=== PATIENT | male | born 1975 | race Caucasian/White ===

== ENCOUNTER → 2020-08-09 | Outpatient (CLI) | payer OTHER ==
[2020-08-09 09:19] LABS: African American GFR (CKD) >90 (>60 ml/min/1.73 sqM); Blood Urea Nitrogen 20 mg/dL (9-20); Non-African American GFR(CKD) >90 (>60 ml/min/1.73 sqM)
--- NOTE | 2020-08-09 13:41 | CT ---
EXAMINATION TYPE: CT angio chest DATE OF EXAM: 08/09/2020 10:54 AM COMPARISON: None HISTORY: right subclavian artery stenosis with history of subclavian stent CT DLP: 2631.8 mGycm Automated exposure control for dose reduction was used. TECHNIQUE: Performed without and with IV Contrast, patient injected with 100 mL of Isovue 370. . FINDINGS: Right-sided subclavian arterial stent is in place. The stent does not opacify with contrast and is th erefore thrombosed. There is reconstitution of the subclavian artery just distal to the stent by an a djacent branch vessel. Visualized portions of the right brachial artery are well opacified. There is been partial resection of the right clavicle as well as the right first rib. The thoracic aorta is of normal caliber. Normal lumbar vessels noted. Visualized portions of the right lung are well opacifie d. Small hiatal hernia noted. The heart is of normal size. IMPRESSION: THROMBOSED RIGHT SUBCLAVIAN ARTERY STENT. RECONSTITUTION JUST DISTAL TO THE THROMBOSED STENT NOTED ABOVE.
== END | disposition home or self-care (01) ==
LOC: RADCTMAIN 08:18
PROVIDERS: ATTEND Thoracic Surgery (Cardiothoracic Vascular Surgery)
DX: I77.1 Stricture of artery (principal); Z95.828 Presence of other vascular implants and grafts
CPT/HCPCS: 82565; 84520; 71275; 36415; Q9967

== ENCOUNTER 2023-01-01 05:59 | Day surgery (SDC) | payer OTHER ==
[2022-12-30 14:58] VITALS: BMI 56.0
[2023-01-01] MEDS ORDERED: LACTATED RINGERS 1,000 ML IV SCH (06:14)
[2023-01-01 06:25] VITALS: TEMP 96.9
[2023-01-01 06:38] LABS: Glucose,Whole Blood 237 mg/dL (70-110)
[2023-01-01] MEDS ORDERED: KETAMINE 10 MG/ML 20 ML VIAL ONE (07:07)
[2023-01-01] MEDS ORDERED: PROPOFOL 10 MG/ML 20 ML VIAL IV ONE (07:07)
[2023-01-01] MEDS ORDERED: fentaNYL (PF) 50 MCG/ML 2 ML AMP ONE (07:07)
[2023-01-01] MEDS ORDERED: MIDAZOLAM 2 MG/2 ML VIAL ONE (07:07)
--- NOTE | 2023-01-01 07:26 | P.PCN ---
Date of Procedure: 01/01/23 Procedure(s) Performed: BRIEF HISTORY: Patient is a 47-year-old pleasant white male scheduled for an elective colonoscopy as a part of evaluation of intermittent rectal bleeding for the last 6 months duration. He has these episodes once or twice a week. PROCEDURE PERFORMED: Colonoscopy with snare polypectomy. PREOPERATIVE DIAGNOSIS: Intermittent rectal bleeding. IV sedation per Anesthesia. PROCEDURE: After informed consent was obtained, the patient, was brought into the endoscopy unit. IV sedation was administered by Anesthesia under continuous monitoring. Digital rectal examination was normal. Initially the Olympus CF-160 flexible video colonoscope was then inserted in the rectum, gradually advanced into the cecum without any difficulty. Careful examination was performed as the scope was gradually being withdrawn. Ileocecal valve and the appendiceal orifice were visualized and appeared normal. Prep was excellent. Mucosa of the cecum, appeared normal. Ascending colon there was a 7 mm sessile polyp removed by snare polypectomy. Rest of the ascending colon, transverse colon, descending colon, sigmoid colon, and rectum appeared normal. Retroflexion was performed in the rectum and small internal hemorrhoids were seen. The patient tolerated the procedure well. IMPRESSION: 7 mm ascending colon polyp status post polypectomy Small internal hemorrhoids RECOMMENDATIONS: Findings of this examination were discussed with the patient as well as his family.. He was advised to follow with the biopsy result. The biopsies with adenoma he can have a repeat colonoscopy in 5 years. In the meantime he was advised to be a high-fiber diet and fiber supplements a regular basis and avoid straining and constipation.
[2023-01-01 07:36] LABS: Glucose,Whole Blood 232 mg/dL (70-110)
[2023-01-01 07:55] VITALS: BP 127/81; PULSE 84; RESP 17
[2023-01-01] MEDS ORDERED: INSULIN ASPART (NovoLOG) 100 UNIT/ML VIAL SQ ONE (07:59)
== END 2023-01-01 08:15 | disposition home or self-care (01) ==
LOC: ORWHC2ENDO 05:59
PROVIDERS: ATTEND Internal Medicine Gastroenterology
DX: D12.2 Benign neoplasm of ascending colon (principal); K62.5 Hemorrhage of anus and rectum; K64.8 Other hemorrhoids; I10 Essential (primary) hypertension; E11.9 Type 2 diabetes mellitus without complications; Z79.899 Other long term (current) drug therapy; Z79.82 Long term (current) use of aspirin; Z95.5 Presence of coronary angioplasty implant and graft; E66.01 Morbid (severe) obesity due to excess calories; Z68.1 Body mass index [BMI] 19.9 or less, adult; Z98.890 Other specified postprocedural states
CPT/HCPCS: 88305; 45385; J2250; J3010; J2704

== ENCOUNTER → 2023-01-21 | Outpatient (CLI) | payer OTHER | END | disposition home or self-care (01) | LOC: LABWHC1 10:05 | PROVIDERS: ATTEND Internal Medicine Endocrinology, Diabetes & Metabolism | DX: Z53.9 Procedure and treatment not carried out, unspecified reason (principal) ==

== ENCOUNTER → 2023-05-24 | Outpatient (CLI) | payer OTHER ==
[2023-05-24 16:56] LABS: ALT 16 U/L (10-49); AST 24 U/L (14-35); Albumin 4.3 d/dL (3.8-4.9); Albumin/Globulin Ratio 1.72 Ratio (1.60-3.17); Alkaline Phosphatase 83 U/L (41-126); BUN/Creat Ratio 12.64 Ratio (12.00-20.00); Blood Urea Nitrogen 13.9 mg/dL (9.0-27.0); Calcium 9.7 mg/dL (8.7-10.3); Carbon Dioxide 26.7 mmol/L (21.6-31.8); Chloride 102 mmol/L (96-109); Chol/HDL Ratio 2.69 Ratio; Globulin 2.5 d/dL (1.6-3.3); Glucose 144 mg/dL (70-110); LDL Cholesterol,Calculated 42.6 mg/dL (0.0-131.0); Potassium 4.8 mmol/L (3.5-5.5); Sodium 141 mmol/L (135-145); Total Bilirubin 0.6 mg/dL (0.3-1.2); Total Protein 6.8 d/dL (6.2-8.2)
[2023-05-24 18:02] LABS: HCT 41.9 % (39.6-50.0); HGB 12.8 d/dL (13.0-17.0); MCH 28.6 pg (27.0-32.0); MCHC 30.5 d/dL (32.0-37.0); MCV 93.5 FL (80.0-97.0); Mean Platelet Volume 9.6 FL (9.5-12.2); NRBC Per 100 WBC 0 X 10*3/uL (0.00-0.01); Platelet Count 295 X 10*3/uL (140-440); RBC 4.48 X 10*6/uL (4.40-5.60); RDW 14.6 % (11.5-14.5); WBC 7.14 X 10*3/uL (4.50-10.00)
[2023-05-24 20:03] LABS: Bacteria,Urine None Seen (None Seen)
[2023-05-24 20:48] LABS: Appearance,Urine Turbid (Clear); Bilirubin,Urine Negative (Negative); Blood,Urine Negative (Negative); Color,Urine Yellow (Yellow); Ketones,Urine Trace (Negative); Nitrite,Urine Negative (Negative); Specific Gravity,Urine 1.027 (1.001-1.030); Urobilinogen,Urine 0.2
== END | disposition home or self-care (01) ==
LOC: LABWHC1 11:20
PROVIDERS: ATTEND Internal Medicine Endocrinology, Diabetes & Metabolism
DX: I10 Essential (primary) hypertension (principal); N40.0 Benign prostatic hyperplasia without lower urinary tract symptoms; E10.65 Type 1 diabetes mellitus with hyperglycemia; E66.01 Morbid (severe) obesity due to excess calories
CPT/HCPCS: 36415; 80053; 80061; 81001; 82043; 82306; 82570; 83036; 84153; 84443; 85027

== ENCOUNTER → 2023-12-20 | Outpatient (CLI) | payer OTHER ==
[2023-12-20 16:29] LABS: ALT 22 U/L (10-49); AST 46 U/L (14-35); Albumin 4.2 g/dL (3.8-4.9); Albumin/Globulin Ratio 1.62 Ratio (1.60-3.17); Alkaline Phosphatase 77 U/L (41-126); Blood Urea Nitrogen 13.2 mg/dL (9.0-27.0); Calcium 9.5 mg/dL (8.7-10.3); Carbon Dioxide 25.5 mmol/L (21.6-31.8); Chloride 104 mmol/L (96-109); Globulin 2.6 g/dL (1.6-3.3); Glucose 138 mg/dL (70-110); LDL Cholesterol,Calculated 54.4 mg/dL (0.0-131.0); Potassium 4.5 mmol/L (3.5-5.5); Prostate Specific Antigen 0.68 ng/mL (0.000-2.500); Sodium 142 mmol/L (135-145); T4, Free (Free Thyroxine) 1.14 ng/dL (0.80-1.80); Total Bilirubin 0.6 mg/dL (0.3-1.2); Total Protein 6.8 g/dL (6.2-8.2)
[2023-12-20 16:58] LABS: HCT 42.1 % (39.6-50.0); MCH 28.6 pg (27.0-32.0); MCHC 30.9 g/dL (32.0-37.0); MCV 92.5 FL (80.0-97.0); Mean Platelet Volume 9.7 FL (9.5-12.2); NRBC Per 100 WBC 0 X 10*3/uL (0.00-0.01); Platelet Count 269 X 10*3/uL (140-440); RBC 4.55 X 10*6/uL (4.40-5.60); RDW 15.1 % (11.5-14.5); WBC 6.77 X 10*3/uL (4.50-10.00)
[2023-12-20 17:07] LABS: Appearance,Urine Turbid (Clear); Bilirubin,Urine Negative (Negative); Blood,Urine Negative (Negative); Color,Urine Yellow (Yellow); Ketones,Urine Negative (Negative); Nitrite,Urine Negative (Negative); Specific Gravity,Urine 1.023 (1.001-1.030); Urobilinogen,Urine 0.2 E.U./DL
[2023-12-20 17:25] LABS: Amorphous Sediment,Urine Present (None Seen); Bacteria,Urine None Seen (None Seen)
== END | disposition home or self-care (01) ==
LOC: LABWHC1 11:15
PROVIDERS: ATTEND Internal Medicine Endocrinology, Diabetes & Metabolism
DX: Z00.00 Encounter for general adult medical examination without abnormal findings (principal); E10.65 Type 1 diabetes mellitus with hyperglycemia
CPT/HCPCS: 36415; 80053; 80061; 81001; 82043; 82570; 83036; 84153; 84439; 84443; 85027

== ENCOUNTER → 2024-02-17 | Outpatient (CLI) | payer OTHER ==
[2024-02-17 13:53] VITALS: BP 129/84; PULSE 92; RESP 18; TEMP 98.2
--- NOTE | 2024-02-17 14:20 | P.SLEEP ---
History of Present Illness DATE: 02/17/2024 CONSULTATION/NEW PATIENT EVALUATION HISTORY OF PRESENT ILLNESS/SLEEP-WAKE EVALUATION: 48-year-old gentleman had be en evaluated in the sleep center for obstructive sleep apnea hypopnea syndrome. Patient has history of obstructive sleep apnea diagnosed about 20 years ago in another institution, he was on treatment with CPAP for about 4 years, then he lost about 100 pounds of weight and his condition improved and he stopped using CPAP. For the next years patient again increased his weight and develop symptoms of sleep apnea. SLEEP SCHEDULE: Usually sleep schedule from 9 PM to 4:15 AM on weekdays and from 10 PM to 8 AM on weekend. FALLING ASLEEP: No problems with falling asleep. DURING SLEEP: Patient has loud snoring and witnessed episodes of stop breathing during the sleep. Patient wakes up from sleep 3 times with nocturia, vivid dreams, sleep talking, restless leg symptoms and twitching of the legs and body. No history of hypnogogical hallucinations, sleep paralysis, or cataplexy. DURING THE DAY/WAKE STATE: During the day patient feels sleepiness. Windsor sleepiness scale is increased to 11. Usually patient does not take naps. PAST MEDICAL HISTORY: Diabetes mellitus type 1, acid reflux, thoracic outlet syndrome. PAST SURGICAL HISTORY: Surgery for thoracic outlet syndrome. MEDICATIONS: Please see below. SOCIAL HISTORY: Please see below. FAMILY HISTORY: Please see below. REVIEW OF SYSTEMS: Snoring, multiple awakenings from sleep. No fevers. No double vision. No recent chest pain. No shortness of breath. No abdominal pain. No bleeding episodes. No blood in urine. No seizure episodes. PHYSICAL EXAMINATION: GENERAL: A pleasant patient without any distress. VITAL SIGNS: Please see below, weight 490.4 pounds, BMI 62.0. HEENT: PERRLA, EOMI. Evaluation of oropharynx showed tongue protrudes midline, low position of soft palate Mallampati 4. NECK: Supple. No JVD. Thyroid is not palpable. 21 inches in circumference. LUNGS: Clear to percussion and to auscultation. Good air exchange. No wheezing or rhonchi. HEART: S1, S2 regular. No murmurs, gallops or rubs. ABDOMEN: Soft and nontender. Bowel sounds are present. No organomegaly appreciated. EXTREMITIES: No clubbing or cyanosis. CARPENTER ROUGH: Awake, alert, and oriented x3. Cranial nerves 2 to 7 intact. There is no fa sciculation or atrophy noted. No focal deficits observed. ASSESSMENT: 1. Loud snoring, witnessed episodes of stop breathing during the sleep, multiple awakenings from sleep, extremely low position of soft palate Mallampati 4, wide neck 21 inches in circumference, sleepiness with Windsor Sleepiness Scale 11, history of obstructive sleep apnea in the past. Obstructive sleep apnea hypopnea syndrome. 2. Significant amount of movements during the sleep, possibly periodic limb movements. 3. Morbid obesity, BMI 62.0. 4. Diabetes mellitus type 1. 5 history of thoracic outlet syndrome, status post surgical treatment. 6 . Acid reflux. 7. History of sleep talking. PLAN: 1. Polysomnography for evaluation of patient's breathing during sleep. 2. CPAP/BiPAP titration . 3. Preferable position during sleep on the side. 4. No driving if patient feels any sleepiness. Patient is aware of civil and criminal liability for unsafe driving. 5. Sleep hygiene with regular sleep time for at least 7.5-8 hours. 6. Aggressive losing weight program. Thank you very much for referring this patient for consultation. Sincerely, Jaycob Bond MD, PhD, FAASM. Diplomat of [employer], Sleep Medicine Board by [employer] Milled Lumber Grader of [facility] [place] Past Medical History Past Medical History: Diabetes Mellitus, Deep Vein Thrombosis (DVT), GERD/Reflux, Sleep Apnea/CPAP/BIPAP Additional Past Medical History / Comment(s): small amount of bleeding with stools,takes prophylaxis for hx. 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 DVT in right arm & leg, snoring History of Any Multi-Drug Resistant Organisms: MRSA Date of last positivie culture/infection: 2004 MDRO Source:: right shoulder Past Surgical History: Hernia Repair, Orthopedic Surgery Additional Past Surgical History / Comment(s): 1st rib removed, right collar bone removed, stent in artery in right arm (told that it is now closed and veins are supporting bloodflow), r knee meniscus Past Anesthesia/Blood Transfusion Reactions: No Reported Reaction, Family History of Problems w/ Anesthesia Additional Past Anesthesia/Blood Transfusion Reaction / Comment(s): no hx blood transfusion. mom has PONV Past Psychological History: No Psychological Hx Reported Smoking Status: Never smoker Past Alcohol Use History: None Reported Past Drug Use History: None Reported Additional Drug Use History / Comment(s): havent drank since 2003 - Past Family History Mother Family Medical History: No Reported History Father Family Medical History: Diabetes Mellitus Additional Family Medical History / Comment(s): snores, stomach ulcers, enlarged prostrate Medications and Allergies Home Medications Medication Instructions Recorded Confirmed Type Aspirin 325 mg PO DAILY 08/29/14 01/01/23 History Clopidogrel [Plavix] 75 mg PO DAILY 08/29/14 01/01/23 History Doxycycline Hyclate [Vibramycin] 100 mg PO BID 08/29/14 01/01/23 History INSULIN ASPART (NovoLOG) [NovoLOG] 0 unit SQ TID-W/MEALS PRN 08/29/14 01/01/23 History Nizatidine [Axid] 150 mg PO DAILY 08/29/14 01/01/23 History Ramipril 20 mg PO HS 08/29/14 02/17/24 History Glucosamine-Chondr 500-400Mg 1 each PO DAILY 12/30/22 01/01/23 History Insulin Detemir (Levemir) [Levemir] 58 unit SQ QAM 12/30/22 01/01/23 History Insulin Detemir (Levemir) [Levemir] 67 unit SQ HS 12/30/22 01/01/23 History Multivit-Mins/Iron/Folic/Lycop 1 each PO DAILY 12/30/22 02/17/24 History [Centrum Men's Tablet] Rosuvastatin Calcium 5 mg PO DAILY 12/30/22 02/17/24 History metFORMIN HCL [Glucophage] 1,000 mg PO BID 12/30/22 02/17/24 History Aspirin 325 mg PO DAILY 02/17/24 02/17/24 History Clopidogrel [Plavix] 75 mg PO DAILY 02/17/24 02/17/24 History Doxycycline [Vibramycin] 100 mg PO BID 02/17/24 02/17/24 History Glucosamine HCl/Chondroitin Escobedo 1,500 mg PO BID 02/17/24 02/17/24 History [Glucosamine-Chondroitin Cap] Insulin Aspart [NovoLOG] 2 units INJ DAILY 02/17/24 02/17/24 History Insulin Detemir (Levemir) [Levemir] 60 unit SQ BID 02/17/24 02/17/24 History Pantoprazole [Protonix] 40 mg PO DAILY 02/17/24 02/17/24 History Allergies Allergy/AdvReac Type Severity Reaction Status Date / Time No Known Allergies Allergy Verified 01/01/23 06:19 Physical Exam Vitals: Vital Signs Temp Pulse Resp BP Pulse Ox 02/17/24 13:53 98.2 F 92 18 129/84 94 L Intake and Output 02/16/24 02/17/24 02/17/24 22:59 06:59 14:59 Other: Weight 222.374 kg Sleep Note - Sleep Data ESS Total: 11 - Sleep Note Sleep Note: Temperature: 98.2 F Pulse Rate: 92 Respiratory Rate: 18 Blood Pressure: 129/84 SpO2: 94 Height: 6 ft 2.5 in Weight: 222.374 kg BMI: Neck Circumference: 21
== END ==
LOC: 3 N SLEEP 13:13
PROVIDERS: ATTEND Internal Medicine
DX: G47.33 Obstructive sleep apnea (adult) (pediatric) (principal); E66.01 Morbid (severe) obesity due to excess calories; E10.9 Type 1 diabetes mellitus without complications; K21.9 Gastro-esophageal reflux disease without esophagitis; Z68.44 Body mass index [BMI] 60.0-69.9, adult; Z86.39 Personal history of other endocrine, nutritional and metabolic disease; Z86.69 Personal history of other diseases of the nervous system and sense organs; Z79.84 Long term (current) use of oral hypoglycemic drugs; Z79.02 Long term (current) use of antithrombotics/antiplatelets
CPT/HCPCS: 99211

== ENCOUNTER 2024-05-29 19:30 | Outpatient (CLI) | payer OTHER ==
--- NOTE | 2024-05-31 12:32 | P.PCN ---
Description of Procedure: : POLYSOMNOGRAPHY REPORT PROCEDURE(S)/DATE(S): Polysomnography 05/29/2024 CLINICAL: Patient has been seen in the sleep center for evaluation of obstructive sleep apnea-hypopnea syndrome. Please see my consultation. Sleep study has been done for evaluation of patient breathing during the sleep. PROCEDURE: The standard montage for clinical polysomnography included the electroencephalogram, the electrooculogram, the mentalis surface electromyography and Lead II cardiography. The respiratory battery consisted of measurements of nasal/buccal air flow, pressure transducer measurements from nose, thoracic and/or abdominal effort and intercostal surface electromyography. Video monitoring has been done to check for any parasomnia events. Nocturnal oxyhemoglobin saturations were obtained by finger oximetry. Step-carrasquillo titration with positive airway pressure was utilized to control the respiratory events, if necessary. RESULTS: During the diagnostic sleep study sleep efficiency was close to normal 88.3%. Latency to sleep onset was short to 4.5 min. Sleep architecture showed stage NI was short 1.4%, Delta sleep was normal 16.5%, REM sleep was significantly increased to 40.2%. Respiratory channel showed 243 obstructive apneas, 5 mixed apneas, 38 central apneas, 307 hypopneas with lowest oxygen level 34%. Total apnea hypopnea index was 19.4. Heart rate was in the range between 73 and 92, average 81. EMG showed 0 periodic limb movements per hour. IMPRESSIONS: 1. Extremely severe obstructive sleep apnea hypopnea syndrome with presence of some central apneas with extremely severe oxygen desaturation. 2. No significant periodic limb movements have been documented. Please see other impressions from consultation PLAN: 1. The patient will have PAP titration for correction of respiratory abnormalities during the sleep. 2. Aggressive losing weight program. 3. Sleep hygiene with regular time in bed for at least 7-1/2 hours. 4. No driving if feeling sleepiness. Thank you very much for allowing me to participate in the management of your patient. Sincerely, Jaycob Bond MD, PhD, FAASM. Diplomat of [place] Board of [employer] Medicine, Sleep Medicine Board by [place] [employer] Internal Medicine Schedule Clerk of [facility] [place] cc: Elder Martinez DO
--- NOTE | 2024-06-07 14:17 | P.PCN ---
Description of Procedure: [address], [place] [address] Procedure Note Patient Name: Jeison Davidson Date of : 79 Patient Status: Clinical Attending Provider: Jaycob Bond Date: 05/31/24 12:21 Initialization Date: 05/31/24 12:21 Description of Procedure: : POLYSOMNOGRAPHY REPORT PROCEDURE(S)/DATE(S): Polysomnography 05/29/2024 CLINICAL: Patient has been seen in the sleep center for evaluation of obstructive sleep apnea-hypopnea syndrome. Please see my consultation. Sleep study has been done for evaluation of patient breathing during the sleep. PROCEDURE: The standard montage for clinical polysomnography included the electroencephalogram, the electrooculogram, the mentalis surface electromyography and Lead II cardiography. The respiratory battery consisted of measurements of nasal/buccal air flow, pressure transducer measurements from nose, thoracic and/or abdominal effort and intercostal surface electromyography. Video monitoring has been done to check for any parasomnia events. Nocturnal oxyhemoglobin saturations were obtained by finger oximetry. Step-carrasquillo titration with positive airway pressure was utilized to control the respiratory events, if necessary. RESULTS: During the diagnostic sleep study sleep efficiency was close to normal 88.3%. Latency to sleep onset was short to 4.5 min. Sleep architecture showed stage NI was short 1.4%, Delta sleep was normal 16.5%, REM sleep was significantly increased to 40.2%. Respiratory channel showed 243 obstructive apneas, 5 mixed apneas, 38 central apneas, 307 hypopneas with lowest oxygen level 34%. Total apnea hypopnea index was 90.4. Heart rate was in the range between 73 and 92, average 81. EMG showed 0 periodic limb movements per hour. IMPRESSIONS: 1. Extremely severe obstructive sleep apnea hypopnea syndrome with presence of some central apneas with extremely severe oxygen desaturation. 2. No significant periodic limb movements have been documented. Please see other impressions from consultation PLAN: 1. The patient will have PAP titration for correction of respiratory abnormalities during the sleep. 2. Aggressive losing weight program. 3. Sleep hygiene with regular time in bed for at least 7-1/2 hours. 4. No driving if feeling sleepiness. Thank you very much for allowing me to participate in the management of your patient. Sincerely, Jaycob Bond MD, PhD, FAASM. Diplomat of [employer] Board of Sleep Medicine, Sleep Medicine Board by [employer] Board of Internal Medicine Student Affairs Vice President of [facility] [place] cc: Elder Martinez DO
== END 2024-05-30 05:25 | disposition home or self-care (01) ==
LOC: 3 N SLEEP 19:30
PROVIDERS: ATTEND Internal Medicine
CPT/HCPCS: 95810

== ENCOUNTER 2024-07-02 19:36 | Outpatient (CLI) | payer OTHER ==
--- NOTE | 2024-07-05 11:29 | P.PCN ---
Description of Procedure: CLINICAL: Titration with positive air pressure has been done for correction of respiratory abnormalities during sleep. DESCRIPTION OF PROCEDURE: The standard montage for clinical polysomnography included the electroencephalogram, the electrocardiogram, the mentalis surface electromyography and Lead II cardiography. The respiratory battery consisted of measurements of nasal /buccal air flow, pressure transducer measurements from the nose, thoracic and /or abdominal effort and intercostal surface electromyography. Video monitoring has been done to check for any parasomnia events. Nocturnal oxyhemoglobin saturations were obtained by finger oximetry. Step-carrasquillo titration with positive airway pressure was utilized to control respiratory events. Raw data of sleep recording has been reviewed and is adequate. RESULTS: Sleep efficiency was normal 91.5%. Latency to sleep onset was normal at 13.5 minutes.]. Sleep architecture showed stage N1 was short 1.2%, Delta sleep was normal 7.8%, REM sleep was increased to 33.5%. Heart rate was minimum 74 BPM, maximum 90 BPM, average 81 BPM. EMG showed 13.4 periodic limb movements per hour with 0.3 micriarousals per hour. PAP titration have been done with CPAP up to the pressure 11 cm H2O. Patient continue abnormalities of respiration with CPAP, switched to BPAP. BPAP titrated up to 24/19 cm H2O. The best results were at the pressure 24/19 cm H2O with 2 L/min oxygen supplement. Apnea hypopnea index reduced to 5.8, patient was on that pressure in non-REM sleep and REM sleep. IMPRESSION: 1. Obstructive sleep apnea hypopnea syndrome mostly on controle with high level of BPAP treatment. 2. Mild periodic limb movements have been documented. 3. Morbid obesity, weight 490 pounds, BMI 62.9. Please see other impressions from consultation. PLAN: 1. The patient will have treatment with positive air pressure equipment with the level of pressure AutoBAPAP with minimal expiratory pressure 10 with maximal inspiratory pressure 24 cm H2O with 2 L/min oxygen supplement and should use it every night for the whole night. 2. Watching and losing weight. 3. Sleep hygiene with regular time in bed for at least 8 hours. 4. No driving if feeling any sleepiness. 5. I will see the patient for follow up visit to explain the results of the test, recommendations, check compliance with treatment and make any necessary adjustment related to mask fitting, pressure and humidification. 6. Please check iron profile including ferritin level. Low level of iron may increase risk for periodic limb movements Thank you very much for allowing me to participate in the management of your patient. Sincerely, Jaycob Bond MD, PhD, FAASM Diplomat of [employer] Board of [employer] Specialties Sleep Medicine Board of [place] Board of Internal Medicine Photographic Processor of [facility] [place] cc: Elder Martinez DO
== END 2024-07-03 04:43 | disposition home or self-care (01) ==
LOC: 3 N SLEEP 19:36
PROVIDERS: ATTEND Internal Medicine
DX: G47.33 Obstructive sleep apnea (adult) (pediatric) (principal); G47.61 Periodic limb movement disorder; G47.10 Hypersomnia, unspecified; E66.01 Morbid (severe) obesity due to excess calories; Z68.44 Body mass index [BMI] 60.0-69.9, adult
CPT/HCPCS: 95811

== ENCOUNTER → 2024-09-26 | Outpatient (CLI) | payer OTHER ==
[2024-09-26 20:35] LABS: ALT 35 U/L (10-49); AST 168 U/L (14-35); Albumin 4.4 g/dL (3.8-4.9); Albumin/Globulin Ratio 1.33 Ratio (1.60-3.17); Alkaline Phosphatase 85 U/L (41-126); BUN/Creat Ratio 9.08 Ratio (12.00-20.00); Blood Urea Nitrogen 10.9 mg/dL (9.0-27.0); Calcium 9.3 mg/dL (8.7-10.3); Carbon Dioxide 23.6 mmol/L (21.6-31.8); Chloride 100 mmol/L (96-109); Chol/HDL Ratio 3.24 Ratio; Globulin 3.3 g/dL (1.6-3.3); Glucose 238 mg/dL (70-110); LDL Cholesterol,Calculated 47.3 mg/dL (0.0-131.0); Potassium 4.3 mmol/L (3.5-5.5); Sodium 137 mmol/L (135-145); Total Bilirubin 0.9 mg/dL (0.3-1.2); Total Protein 7.7 g/dL (6.2-8.2)
[2024-09-26 20:38] LABS: HCT 43.7 % (39.6-50.0); HGB 13.6 g/dL (13.0-17.0); MCH 27.9 pg (27.0-32.0); MCHC 31.1 g/dL (32.0-37.0); MCV 89.5 FL (80.0-97.0); Mean Platelet Volume 9.7 FL (9.5-12.2); NRBC Per 100 WBC 0 X 10*3/uL (0.00-0.01); Platelet Count 233 X 10*3/uL (140-440); RBC 4.88 X 10*6/uL (4.40-5.60); RDW 14.7 % (11.5-14.5); WBC 4.59 X 10*3/uL (4.50-10.00)
[2024-09-26 20:43] LABS: Appearance,Urine Turbid (Clear); Bilirubin,Urine Small (Negative); Blood,Urine Negative (Negative); Color,Urine Dark Yellow (Yellow); Ketones,Urine 40 (Negative); Nitrite,Urine Negative (Negative); PH, Urine 5.5; Specific Gravity,Urine 1.024 (1.001-1.030)
[2024-09-26 20:49] LABS: Bacteria,Urine None Seen (None Seen)
[2024-09-26 21:07] LABS: Prostate Specific Antigen 0.74 ng/mL (0.000-2.500)
== END | disposition home or self-care (01) ==
LOC: LABWHC1 15:06
PROVIDERS: ATTEND Internal Medicine Endocrinology, Diabetes & Metabolism
DX: I10 Essential (primary) hypertension (principal); N40.0 Benign prostatic hyperplasia without lower urinary tract symptoms; E55.9 Vitamin D deficiency, unspecified; E10.65 Type 1 diabetes mellitus with hyperglycemia
CPT/HCPCS: 36415; 80053; 80061; 81001; 82043; 82306; 82570; 83036; 84153; 84443; 85027

== ENCOUNTER → 2024-10-12 | Outpatient (CLI) | payer OTHER ==
[2024-10-12 16:41] VITALS: BP 177/88; PULSE 76; RESP 16; TEMP 98.9
--- NOTE | 2024-10-12 18:06 | P.PROGSL ---
Subjective DATE: 10/12/2024 FOLLOW UP VISIT. Patient with obstructive sleep apnea hypopnea syndrome return to sleep center for follow-up visit. Information from previous visit have been reviewed. Patient is using PAP equipment every night for the whole night, getting PAP supplies in time. The patient does not have significant problems with the mask, PAP unit and humidification. Merrick sleepiness scale is 2, which is perfect. I checked information from PAP unit. PAP unit pressure maximal inspiratory pressure 24, minimal expiratory pressure 10, pressure support 4, average pressure 19.3/15.3 cm H2O. Usage is 100% for more then 4 hours, average 7.25 hours per night. Leak is 23.8 l/m, which is in acceptable range. Apnea Hypopnea Index is 2.9, which is normal. MEDICATIONS: Please see below During physical exam: GENERAL: A pleasant patient without any distress. VITAL SIGNS: Please see below, weight 489. HEENT: PERRLA, EOMI.low position of soft palate, Mallapati 4 . NECK: Supple. No JVD. LUNGS: Clear to percussion and to auscultation. Good air exchange. No wheezing or rhonchi. HEART: S1, S2 regular. ABDOMEN: Soft and nontender. Obese EXTREMITIES: No clubbing or cyanosis. SOFTWARE ENGINEERING PROJECT MANAGER: Awake, alert, and oriented x3. No focal deficit. Impressions: 1. Extremely severe obstructive sleep apnea hypopnea syndrome, apnea hypopnea index 90.4. Patient demonstrated great compliance with treatment, benefiting from treatment. 2. Obesity, body mass index around 62. 3. Diabetes mellitus type 1. 4. Status post surgical treatment for thoracic outlet syndrome. 5. Acid reflux. 6. History of sleep talking. Plan: 1. Continue using PAP equipment every night for the whole night. 2. To change air filter at least 1-2 times per month. 3. PAP unit should stay lower then position of the head. 4. Advised patient to remove all remaining water from humidifier canister daily and make it dry after each usage. Refill canister with fresh distilled water before each usage. 5. Sleep hygiene with regular time in bed for at least 8 hours. 6. Precautions related to driving. No driving if feel any sleepiness. 7. I will maintain prescription for PAP supplies including mask, tube, filters. 8. Follow up visit in 8 months or earlier if patient has any problems. 9. Watching and losing weight. Thank you very much for allowing me to participate in the management of your patient. Jaycob Bond MD, PhD, FAASM. Diplomat of [employer] Board of Sleep Medicine, Sleep Medicine Board by [employer] Board of Internal Medicine Solar Electric Installer of [facility] [place] Objective - Vital Signs Vital Signs: Vital Signs Temp 98.9 F 10/12/24 16:40 Pulse 76 10/12/24 16:40 Resp 16 10/12/24 16:40 BP 177/88 10/12/24 16:40 Pulse Ox 92 L 10/12/24 16:40 FiO2 Home Medications: Home Medications Medication Instructions Recorded Confirmed Type Aspirin 325 mg PO DAILY 08/29/14 01/01/23 History Clopidogrel [Plavix] 75 mg PO DAILY 08/29/14 01/01/23 History Doxycycline Hyclate [Vibramycin] 100 mg PO BID 08/29/14 01/01/23 History INSULIN ASPART (NovoLOG) [NovoLOG] 0 unit SQ TID-W/MEALS PRN 08/29/14 01/01/23 History Nizatidine [Axid] 150 mg PO DAILY 08/29/14 01/01/23 History Ramipril 20 mg PO HS 08/29/14 02/17/24 History Glucosamine-Chondr 500-400Mg 1 each PO DAILY 12/30/22 01/01/23 History Insulin Detemir (Levemir) [Levemir] 58 unit SQ QAM 12/30/22 01/01/23 History Insulin Detemir (Levemir) [Levemir] 67 unit SQ HS 12/30/22 01/01/23 History Multivit-Mins/Iron/Folic/Lycop 1 each PO DAILY 12/30/22 02/17/24 History [Centrum Men's Tablet] Rosuvastatin Calcium 5 mg PO DAILY 12/30/22 02/17/24 History metFORMIN HCL [Glucophage] 1,000 mg PO BID 12/30/22 02/17/24 History Aspirin 325 mg PO DAILY 02/17/24 02/17/24 History Clopidogrel [Plavix] 75 mg PO DAILY 02/17/24 02/17/24 History Doxycycline [Vibramycin] 100 mg PO BID 02/17/24 02/17/24 History Glucosamine HCl/Chondroitin Escobedo 1,500 mg PO BID 02/17/24 02/17/24 History [Glucosamine-Chondroitin Cap] Insulin Aspart [NovoLOG] 2 units INJ DAILY 02/17/24 02/17/24 History Insulin Detemir (Levemir) [Levemir] 60 unit SQ BID 02/17/24 02/17/24 History Pantoprazole [Protonix] 40 mg PO DAILY 02/17/24 02/17/24 History
== END ==
LOC: 3 N SLEEP 15:38
PROVIDERS: ATTEND Internal Medicine
DX: G47.33 Obstructive sleep apnea (adult) (pediatric) (principal); E66.9 Obesity, unspecified; Z68.44 Body mass index [BMI] 60.0-69.9, adult; E10.9 Type 1 diabetes mellitus without complications; K21.9 Gastro-esophageal reflux disease without esophagitis; Z98.890 Other specified postprocedural states
CPT/HCPCS: 99212

== ENCOUNTER → 2025-01-17 | Outpatient (CLI) | payer OTHER ==
[2025-01-17 16:47] VITALS: BP 171/93; PULSE 78; RESP 16; TEMP 98.3
--- NOTE | 2025-01-17 17:12 | P.PROGSL ---
Subjective DATE: [] FOLLOW UP VISIT. Patient with obstructive sleep apnea hypopnea syndrome return to sleep center for follow-up visit. Information from previous visit have been reviewed. Patient is using PAP equipment every night for the whole night, getting PAP supplies in time. The patient does not have significant problems with the mask, PAP unit and humidification. Lamar sleepiness scale is 2, which is perfect. I checked information from PAP unit. BPAP unit pressure maximal expiratory pressure 24, minimal expiratory pressure 10, pressure support 4, average pressure 18.4/14.5 cm H2O. Usage is 100% for more then 4 hours, average 6.5 hours per night. Leak is 25.6 l/m, which is in acceptable range. Apnea Hypopnea Index is 3.5, which is normal. MEDICATIONS have been reviewed, please see below. During physical exam: GENERAL: A pleasant patient without any distress. VITAL SIGNS: Please see below, weight is 482 lbs. HEENT: PERRLA, EOMI.low position of soft palate, Mallapati 4 . NECK: Supple. No JVD. LUNGS: Clear to percussion and to auscultation. Good air exchange. No wheezing or rhonchi. HEART: S1, S2 regular. ABDOMEN: Soft and nontender. Obese EXTREMITIES: No clubbing or cyanosis. [employer]: Awake, alert, and oriented x3. No focal deficit. Impressions: 1. Obstructive sleep apnea-hypopnea syndrome. Patient demonstrated great compliance with treatment, benefiting from treatment. 2. Obesity, patient lost 7 pounds comparing with previous visit. 3. Diabetes mellitus type 1. 4. Status post surgical treatment for thoracic outlet syndrome. 5. History of sleep talking in the past. 6. Acid reflux. Plan: 1. Continue using PAP equipment every night for the whole night. 2. Sleep hygiene with regular time in bed for at least 7.5-8 hours 3. PAP unit should stay lower then position of the head. 4. Advised patient to remove all remaining water from humidifier canister daily and make it dry after each usage. Refill canister with fresh distilled water before each usage. 5. Watching and losing weight. 6. Precautions related to driving. No driving if feel any sleepiness. 7. I will maintain prescription for PAP supplies including mask, tube, filters. 8. Follow up visit in 8 months or earlier if patient has any problems. Thank you very much for allowing me to participate in the management of your patient. Jaycob Bond MD, PhD, FAASM. Diplomat of [place] [employer], Sleep Medicine Board by [employer] [facility] [place] Objective - Vital Signs Vital Signs: Vital Signs Temp 98.3 F 01/17/25 16:46 Pulse 78 01/17/25 16:46 Resp 16 01/17/25 16:46 BP 171/93 01/17/25 16:46 Pulse Ox 93 L 01/17/25 16:46 FiO2 Intake & Output 01/16/25 01/17/25 01/17/25 18:59 06:59 18:59 Weight 218.632 kg Home Medications: Home Medications Medication Instructions Recorded Confirmed Type Aspirin 325 mg PO DAILY 08/29/14 01/01/23 History Clopidogrel [Plavix] 75 mg PO DAILY 08/29/14 01/01/23 History Doxycycline Hyclate [Vibramycin] 100 mg PO BID 08/29/14 01/01/23 History INSULIN ASPART (NovoLOG) [NovoLOG] 0 unit SQ TID-W/MEALS PRN 08/29/14 01/01/23 History Nizatidine [Axid] 150 mg PO DAILY 08/29/14 01/01/23 History Ramipril 20 mg PO HS 08/29/14 02/17/24 History Glucosamine-Chondr 500-400Mg 1 each PO DAILY 12/30/22 01/01/23 History Insulin Detemir (Levemir) [Levemir] 58 unit SQ QAM 12/30/22 01/01/23 History Insulin Detemir (Levemir) [Levemir] 67 unit SQ HS 12/30/22 01/01/23 History Multivit-Mins/Iron/Folic/Lycop 1 each PO DAILY 12/30/22 02/17/24 History [Centrum Men's Tablet] Rosuvastatin Calcium 5 mg PO DAILY 12/30/22 02/17/24 History metFORMIN HCL [Glucophage] 1,000 mg PO BID 12/30/22 02/17/24 History Aspirin 325 mg PO DAILY 02/17/24 02/17/24 History Clopidogrel [Plavix] 75 mg PO DAILY 02/17/24 02/17/24 History Doxycycline [Vibramycin] 100 mg PO BID 02/17/24 02/17/24 History Glucosamine HCl/Chondroitin [place] 1,500 mg PO BID 02/17/24 02/17/24 History [Glucosamine-Chondroitin Cap] Insulin Aspart [NovoLOG] 2 units INJ DAILY 02/17/24 02/17/24 History Insulin Detemir (Levemir) [Levemir] 60 unit SQ BID 02/17/24 02/17/24 History Pantoprazole [Protonix] 40 mg PO DAILY 02/17/24 02/17/24 History
== END ==
LOC: 3 N SLEEP 15:55
PROVIDERS: ATTEND Internal Medicine
DX: G47.33 Obstructive sleep apnea (adult) (pediatric) (principal); K21.9 Gastro-esophageal reflux disease without esophagitis; E10.9 Type 1 diabetes mellitus without complications; E66.9 Obesity, unspecified; Z68.33 Body mass index [BMI] 33.0-33.9, adult; Z87.39 Personal history of other diseases of the musculoskeletal system and connective tissue; Z86.59 Personal history of other mental and behavioral disorders; Z99.89 Dependence on other enabling machines and devices
CPT/HCPCS: 99212